=== PATIENT | female | born 1940 | race Caucasian/White ===

== ENCOUNTER 2021-02-21 15:15 | Outpatient (REF) | payer MEDICARE, BC, SELFPAY ==
[2021-02-21 21:41] LABS: BUN 15 mg/dL (7-18); CREATININE 0.8 mg/dL (0.55-1.02); Calcium 9.1 mg/dL (8.5-10.1); Chloride 107 mmol/L (98-107); Glucose 101 mg/dL (74-106); Potassium 4.2 mmol/L (3.5-5.1); Sodium 145 mmol/L (136-145)
== END 2021-02-21 15:16 | disposition home or self-care (01) ==
LOC: LBN 15:15
PROVIDERS: Visit Provider Nurse Practitioner Family
DX: R00.0 Tachycardia, unspecified (principal)
CPT/HCPCS: 80048; 84443

== ENCOUNTER 2021-02-23 16:12 | Outpatient (RCR) | payer MEDICARE, BC, SELFPAY ==
--- NOTE | 2021-02-23 16:15 | HOLTER_ITS ---
APPROVED REPORT Conclusion This is a 48-hour Holter monitor reportedly ordered for tachycardia Rhythm throughout was sinus with an average heart rate of 73. Minimum was 55, maximum 114 There were rare atrial and ventricular ectopic beats There were 8 self-limited atrial runs, the longest of which was 7 beats in duration There was no atrial fibrillation, no high-grade AV block, no pauses greater than 3 seconds No patient symptoms were reported
== END 2021-03-05 23:59 | disposition home or self-care (01) ==
LOC: RT 16:12
PROVIDERS: PCP Nurse Practitioner Family; Visit Provider Nurse Practitioner Family
DX: R00.0 Tachycardia, unspecified (principal); I49.1 Atrial premature depolarization
CPT/HCPCS: 93227; 93225; 93226

== ENCOUNTER 2021-03-27 16:55 | Outpatient (REF) | payer MEDICARE, BC, SELFPAY ==
[2021-03-29 15:04] LABS: COVID-19 RT-PCR UVMMC Result Negative (Negative)
== END 2021-03-27 16:56 | disposition home or self-care (01) ==
LOC: NCHCN 16:55
PROVIDERS: PCP Nurse Practitioner Family; Visit Provider Family Medicine
DX: Z20.822 Contact with and (suspected) exposure to COVID-19 (principal)
CPT/HCPCS: U0003

== ENCOUNTER 2021-06-06 02:04 | Outpatient (CLI) | payer MEDICARE, BC, SELFPAY ==
[2021-06-06 11:19] LABS: Vitamin B12 535 pg/mL (193-986)
== END 2021-06-06 02:05 | disposition home or self-care (01) ==
LOC: LBO 02:04
PROVIDERS: PCP Family Medicine; Visit Provider Nurse Practitioner Adult Health
DX: G31.84 Mild cognitive impairment of uncertain or unknown etiology
CPT/HCPCS: 36415; 82607

== ENCOUNTER → 2021-08-03 02:28 | Outpatient (CLI) | payer MEDICARE, BC, SELFPAY ==
--- NOTE | 2021-08-03 07:44 | DI.MAMMO_ITS ---
Exam(s) MAMMO SCREENING EXAM: MAMMO SCREENING CLINICAL HISTORY: SCREENING FOR BREAST CANCER Z12.39 TECHNIQUE: Bilateral full field digital CC and MLO mammographic images were obtained with 3D tomosyn thesis and utilizing computer aided detection (CAD). COMPARISON: None. FINDINGS: Masses/Architectural Distortion: None seen. Microcalcifications: No suspicious pleomorphic-type are seen. Skin Thickening/Nipple Retraction: None. IMPRESSION: 1. No significant interval change with no specific features of malignancy noted. 2. Unless there is more urgent need, screening mammography is recommended, as per [employer] guidelines. BI-RADS Category 1 - Negative Breast Density - Category B - Scattered areas of fibroglandular density Breast density category C or D implies that the patient has dense breast tissue. Dense breast tissue is very common and is not abnormal but dense breast tissue can make it harder to find cancer on a ma mmogram. Also, dense breast tissue may increase their breast cancer risk. This information about the result of the mammogram report was provided to the patient to raise their awareness. Use this report when you speak with the patient about their risks for breast cancer, which includes their family hist ory. At that time, you may recommend for more screening tests (Ultrasound or MRI) as they might be us eful based on their risk. A negative radiographic report should not delay biopsy if a dominant or clinically suspicious mass is present. Up to ten percent of cancers are not identified on mammography. A negative report may reinforce clinical impression. Adenosis and dense breasts may obscure an underlying neoplasm. False positive reports average 6 to 10%. Patient will receive a letter notifying them of these results.
== END ==
PROVIDERS: PCP Family Medicine; Visit Provider Family Medicine
DX: Z12.31 Encounter for screening mammogram for malignant neoplasm of breast (principal)
CPT/HCPCS: 77063; 77067

== ENCOUNTER → 2022-01-10 08:46 | Outpatient (BNVA) | payer MEDICARE, BC, SELFPAY | PROVIDERS: PCP Family Medicine; Referring Provider Family Medicine; Visit Provider Nurse Practitioner Adult Health | DX: G30.9 Alzheimer's disease, unspecified (principal); F02.80 Dementia in other diseases classified elsewhere, unspecified severity, without behavioral disturbance, psychotic disturbance, mood disturbance, and anxiety | CPT/HCPCS: 99213; 99215 ==

== ENCOUNTER → 2022-01-22 12:37 | Outpatient (CLI) | payer MEDICARE, BC, SELFPAY ==
[2022-01-22] MEDS: Barium Sulfate 2% W/V-Creamy Vanilla Smoothie 450 ML BTL PO ×2 (12:23→12:24)
[2022-01-22 12:57] LABS: CREATININE 0.7 mg/dL (0.55-1.02); Estimated GFR 87.92 (mL/min/1.73m2)
--- NOTE | 2022-01-22 14:40 | DI.CT_ITS ---
Exam(s) CT ABDOMEN PELVIS W EXAM: CT ABDOMEN PELVIS W CLINICAL HISTORY: LLQ ABD PAIN, R10.32. TECHNIQUE: Imaging Protocol: Axial computed tomography images with coronal and sagittal reformatted images were created and reviewed CONTRAST MATERIAL: Intravenous: Omnipaque 350 Contrast volume:80 ml Oral: yes COMPARISON: No exams were available for comparison FINDINGS: ABDOMEN: Lung Bases: Normal where visualized. Liver: Normal density. No measurable mass. Gallbladder and biliary tract: No radiodense calculus or dilation. Pancreas: Normal density, no abnormal calcifications or inflammatory process. Spleen: Normal. Kidneys: Normal size, contour and axis. No radiodense stones or obstructive uropathy. No masses seen. Adrenal glands: No masses seen. Abdominal Aorta: Abdominal portion non-dilated. Atherosclerotic changes. Stomach and small bowel: Unremarkable. PELVIS: Bladder: No gross wall thickening. No calculi.No focal mass. Bowel: Extremely prominent diverticulosis involving the descending and sigmoid colon. Mild diverticu losis ascending and transverse colon. Mild inflammatory changes are seen in the adjacent fat at the mid descending colon, consistent with mild diverticulitis. No evidence of perforation or abscess. N o obstruction or bowel wall thickening. Peritoneal cavity: No ascites, collection or mesenteric infla mmatory response. Bones: severe degenerative changes and scoliosis. Reproductive organs: Within normal limits. Lymph nodes: Unremarkable. Impression: Severe diverticulosis of the descending and sigmoid colon with mild diverticulitis of the mid descend ing colon. RADIATION DOSE DELIVERED: 775.55mGy.cm Total DLP DATA REPOSITORY: All CT scans at this facility are submitted to the National Radiology Data Registry (NRDR) Dose Index Registry (DIR) with the [employer] (ACR). RADIATION OPTIMIZATION: All CT scans at this facility use at least one of these dose optimization te chniques: automated exposure control; mA and/or kV adjustment per patient size (includes targeted exa ms where dose is matched to clinical indication); or iterative reconstruction.
[2022-01-22] MEDS: Normal Saline Flush 10 ML SYR IVP (14:46)
== END ==
PROVIDERS: PCP Family Medicine; Visit Provider Family Medicine
DX: Z01.812 Encounter for preprocedural laboratory examination (principal); R10.32 Left lower quadrant pain; K57.32 Diverticulitis of large intestine without perforation or abscess without bleeding; K57.30 Diverticulosis of large intestine without perforation or abscess without bleeding
CPT/HCPCS: 74177; 82565

== ENCOUNTER 2022-01-22 18:14 | Outpatient (REF) | payer MEDICARE, BC, SELFPAY ==
[2022-01-22 16:59] LABS: Abs Immature Grans 0.01 10^3/uL (0.0-0.06); Absolute Basophil Count 0.03 10^3/uL (0.0-0.2); Absolute Eosinophil Count 0.11 10^3/uL (0.0-0.7); Absolute Lymphocyte Count 1.18 10^3/uL (1.2-3.4); Absolute Monocyte Count 0.46 10^3/uL (0.1-0.8); Absolute Neutrophil Count 2.71 10^3/uL (1.2-6.7); Basophils % 0.7; Eosinophils % 2.4; HCT 37.4 % (36.0-46.0); HGB 13.2 g/dL (11.2-15.7); Immature Grans % 0.2; Lymphocytes % 26.2; MCHC 35.3 % (32.0-36.0); MCV 99 fL (80-95); MPV 11.3 fL (8.0-11.0); Monocytes % 10.2; Neutrophils % 60.3; Platelet Count 159 10^3/uL (130-400); RBC 3.77 10^6/uL (3.93-5.22); RDW 12.2 % (11.7-14.6); RDW-SD 43.1 fL
[2022-01-22 17:20] LABS: ALT 32 U/L (14-59); AST 29 U/L (15-37); Albumin 3.7 g/dL (3.4-5.0); Alkaline Phosphatase 79 U/L (46-116); Anion Gap 6.2 mmol/L (3-11); BUN 9 mg/dL (7-18); Bilirubin, Total 0.5 mg/dL (0.2-1.0); CO2 30.8 mmol/L (21.0-32.0); CREATININE 0.8 mg/dL (0.55-1.02); Calcium 9.2 mg/dL (8.5-10.1); Chloride 104 mmol/L (98-107); Glucose 95 mg/dL (74-106); Sodium 141 mmol/L (136-145); Total Protein 7.4 g/dL (6.4-8.2)
== END 2022-01-22 18:15 | disposition home or self-care (01) ==
LOC: NCHCN 18:14
PROVIDERS: PCP Family Medicine; Visit Provider Family Medicine
DX: R10.32 Left lower quadrant pain (principal)
CPT/HCPCS: 80053; 85025

== ENCOUNTER → 2022-02-07 11:57 | Outpatient (CLI) | payer MEDICARE, BC, SELFPAY ==
--- NOTE | 2022-02-07 11:12 | DI.RAD_ITS ---
Exam(s) XR LUMBAR SPINE COMPLETE EXAM: XR LUMBAR SPINE COMPLETE CLINICAL HISTORY: ACUTE LOW BACK PAIN, M54.59. TECHNIQUE: 2D digital imaging was performed. Five views. COMPARISON: CT CT ABDOMEN PELVIS W from 01/22/2022 FINDINGS: BONES: No fracture or destructive lesion. Vertebral body heights are maintained. facet hypertrophy identified throughout the lumbar region.. DISKS: Disc space narrowing throughout, greater on the right side. 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 SOFT TISSUE: Aortic calcified and normal in diameter. Residual contrast noted within multiple divert icula. IMPRESSION: Advanced degenerative changes and scoliosis. No compression fracture. DATA REPOSITORY: RADIATION DOSE DELIVERED:
== END ==
PROVIDERS: PCP Family Medicine; Visit Provider Family Medicine
DX: M54.59 Other low back pain (principal); M51.36 Other intervertebral disc degeneration, lumbar region; M47.816 Spondylosis without myelopathy or radiculopathy, lumbar region
CPT/HCPCS: 72110

== ENCOUNTER → 2022-02-21 09:57 | Outpatient (BNVA) | payer MEDICARE, BC, SELFPAY | PROVIDERS: PCP Family Medicine; Referring Provider Family Medicine; Visit Provider Nurse Practitioner Adult Health | DX: G30.9 Alzheimer's disease, unspecified (principal); F02.80 Dementia in other diseases classified elsewhere, unspecified severity, without behavioral disturbance, psychotic disturbance, mood disturbance, and anxiety; Z87.820 Personal history of traumatic brain injury; F32.A Depression, unspecified | CPT/HCPCS: 99213; 99214 ==

== ENCOUNTER 2023-09-09 14:00 | Outpatient (REF) | payer MEDICARE, BC, SELFPAY ==
[2023-09-09 15:05] LABS: Abs Immature Grans 0.01 10^3/uL (0.0-0.06); Absolute Basophil Count 0.02 10^3/uL (0.0-0.2); Absolute Eosinophil Count 0.04 10^3/uL (0.0-0.7); Absolute Lymphocyte Count 1.01 10^3/uL (1.2-3.4); Absolute Monocyte Count 0.47 10^3/uL (0.1-0.8); Absolute Neutrophil Count 2.84 10^3/uL (1.2-6.7); Basophils % 0.5 %; Eosinophils % 0.9 %; HCT 41.6 % (36.0-46.0); HGB 14.1 g/dL (11.2-15.7); Immature Grans % 0.2 %; MCH 32.5 pg (27.0-33.0); MCHC 33.9 % (32.0-36.0); MCV 96 fL (80-95); MPV 10.3 fL (8.0-11.0); Monocytes % 10.7 %; Neutrophils % 64.7 %; Platelet Count 150 10^3/uL (130-400); RBC 4.34 10^6/uL (3.93-5.22); RDW 13.6 % (11.7-14.6); RDW-SD 46.5 fL; WBC 4.39 10^3/uL (4.4-10.8)
[2023-09-09 15:42] LABS: ALT 23 U/L (14-59); AST 26 U/L (15-37); Alkaline Phosphatase 71 U/L (46-116); Anion Gap 7.8 mmol/L (3-11); BUN 7 mg/dL (7-18); Bilirubin, Total 0.6 mg/dL (0.2-1.0); CO2 30.2 mmol/L (21.0-32.0); CREATININE 0.8 mg/dL (0.55-1.02); Calcium 9.1 mg/dL (8.5-10.1); Chloride 106 mmol/L (98-107); Estimated GFR 73.98 (mL/min/1.73m2); Glucose 98 mg/dL (74-106); Potassium 4.3 mmol/L (3.5-5.1); Sodium 144 mmol/L (136-145); TSH 1.47 uIU/Ml (0.36-3.74); Total Protein 6.4 g/dL (6.4-8.2)
== END 2023-09-09 14:01 | disposition home or self-care (01) ==
LOC: NCHCN 14:00
PROVIDERS: PCP Family Medicine; Visit Provider Family Medicine
DX: G30.9 Alzheimer's disease, unspecified (principal)
CPT/HCPCS: 80053; 84443; 85025

== ENCOUNTER → 2023-09-26 10:02 | Outpatient (BNVA) | payer MEDICARE, BC, SELFPAY | PROVIDERS: PCP Family Medicine; Referring Provider Family Medicine; Visit Provider Nurse Practitioner Adult Health | DX: G30.9 Alzheimer's disease, unspecified (principal); F02.80 Dementia in other diseases classified elsewhere, unspecified severity, without behavioral disturbance, psychotic disturbance, mood disturbance, and anxiety | CPT/HCPCS: 99215 ==

== ENCOUNTER → 2023-11-28 08:33 | Outpatient (BNVA) | payer MEDICARE, BC, SELFPAY | PROVIDERS: PCP Family Medicine; Referring Provider Family Medicine; Visit Provider Nurse Practitioner Adult Health | DX: G30.9 Alzheimer's disease, unspecified (principal); F02.80 Dementia in other diseases classified elsewhere, unspecified severity, without behavioral disturbance, psychotic disturbance, mood disturbance, and anxiety; F41.9 Anxiety disorder, unspecified | CPT/HCPCS: 99213 ==

== ENCOUNTER 2024-03-19 14:51 | Outpatient (REF) | payer MEDICARE, BC, SELFPAY ==
--- NOTE | 2024-03-19 10:00 | SKI_PTH ---
PATIENT: Tatiana Webster LOC: [facility] U#:[id number] AGE/SX: 83/F ROOM: RE03/19/[address]: Andrew March : 1940 BED: DIS: 03/19/2024 SPEC #: [id number] RECD: 03/19/24 14:58 STATUS: [facility] REKwadwo #: [id number] LARON: 03/19/24 10:[address]: Andrew March DEPT: Surgical Specimen RECD BY: Susan Contreras Tissues: 1 - SKIN BIOPSY(SHAVE/PUNCH) Procedures: SKIN LEVEL 4 Comments: [id number]
== END 2024-03-19 14:52 | disposition home or self-care (01) ==
LOC: LBN 14:51
PROVIDERS: PCP Family Medicine; Visit Provider Family Medicine
DX: C44.719 Basal cell carcinoma of skin of left lower limb, including hip (principal)
CPT/HCPCS: 88305

== ENCOUNTER → 2024-05-19 08:17 | Outpatient (BNVA) | payer MEDICARE, BC, SELFPAY | PROVIDERS: PCP Family Medicine; Referring Provider Family Medicine; Visit Provider Nurse Practitioner Adult Health | DX: G30.9 Alzheimer's disease, unspecified (principal); F02.80 Dementia in other diseases classified elsewhere, unspecified severity, without behavioral disturbance, psychotic disturbance, mood disturbance, and anxiety | CPT/HCPCS: 99214 ==

== ENCOUNTER 2025-01-06 14:53 | Outpatient (CLI) | payer MEDICARE, BC, SELFPAY ==
--- NOTE | 2025-01-06 06:00 | DI.RAD_ITS ---
Exam(s) XR FOOT RT COMPLETE EXAM: XR FOOT RT COMPLETE CLINICAL HISTORY: Right foot pain M79.671. TECHNIQUE: 2D digital imaging was performed of the right foot. Three images were obtained. AP, oblique and lateral views were obtained. COMPARISON: No exams were available for comparison FINDINGS: BONES: No acute fracture is present. No bony destructive lesion is seen. There is overlapping of the 1st and 2nd toes. JOINTS: No dislocation present. Degenerative changes are present characterized by joint space narrowing and osteophytes. The findings are most marked at the interphalangeal joints of the toes, particularly the 4th toe, and the 1st MTP joint. SOFT TISSUE: Normal. IMPRESSION: Degenerative changes of the foot particularly at the 1st MTP joint and the interphalangeal joints of the 4th toe. DATA REPOSITORY: RADIATION DOSE DELIVERED:
== END 2025-01-06 15:13 ==
PROVIDERS: PCP Family Medicine; Visit Provider Podiatrist
DX: M19.071 Primary osteoarthritis, right ankle and foot (principal); L97.511 Non-pressure chronic ulcer of other part of right foot limited to breakdown of skin; M79.671 Pain in right foot; M20.41 Other hammer toe(s) (acquired), right foot; L84 Corns and callosities
CPT/HCPCS: 97597; 99213; 73630

== ENCOUNTER 2025-03-10 16:18 | Outpatient (REF) | payer MEDICARE, BC, SELFPAY ==
--- NOTE | 2025-03-10 10:20 | SKI_PTH ---
PATIENT: Tatiana Webster LOC: [facility] U#:[id number] AGE/SX: 84/F ROOM: RE03/10/[address]: Andrew March : 1940 BED: DIS: 03/10/2025 SPEC #: [id number] RECD: 03/10/25 17:53 STATUS: [facility] REKwadwo #: [id number] LARON: 03/10/25 10:[address]: Andrew March DEPT: Surgical Specimen RECD BY: Susan Contreras Tissues: 1 - SKIN BIOPSY(SHAVE/PUNCH) Procedures: SKIN LEVEL 4 Comments: [id number]
[2025-03-10 14:13] LABS: Glucose Negative (Negative)
== END 2025-03-10 16:19 | disposition home or self-care (01) ==
LOC: NCHCN 16:18
PROVIDERS: PCP Family Medicine; Visit Provider Family Medicine
DX: G30.9 Alzheimer's disease, unspecified (principal)
CPT/HCPCS: 81003; 88305

== ENCOUNTER 2025-04-26 14:48 | Emergency (ER) | payer MEDICARE, BC, SELFPAY ==
[2025-04-26 14:54] VITALS: BP 163/62; PULSE 82; RESP 20; O2SAT 97
--- NOTE | 2025-04-26 15:00 | DI.CT_ITS ---
Exam(s) CT HEAD CERV SPINE FACIAL WO EXAM: CT HEAD CERV SPINE FACIAL WO CLINICAL HISTORY: unwitness fall, facial trauma. TECHNIQUE: Imaging Protocol: Axial computed tomography images with coronal and sagittal reformatted images were created and reviewed COMPARISON: No exams were available for comparison FINDINGS: CT BRAIN: There are no skull fractures nor fluid in the visualized paranasal sinuses. There is no evidence of intracranial hemorrhage, mass effect, or shift of midline structures. There are no extra-axial fluid collections. The ventricles are not enlarged or shifted and there is no blood within the ventricular system nor within the basal cisterns. There is symmetrical age-related atrophy. The size of the ventricles does not appear to be out of proportion when compared to the size of the overlying cortical sulci. There is moderate amount of bilateral symmetrical periventricular hypodensity consistent with chronic small vessel disease. No obvious acute infarct. CT MAXILLOFACIAL BONES: There is a slight irregularity evident in the right-side of the nasal bone consistent with probable fracture, age indeterminate. There is no evidence of other facial fractures nor fluid in the visualized paranasal sinuses. there is no evidence of orbital blowout fracture. Mandible is intact. CT CERVICAL SPINE: There is fusion of C2 and C3.. There is mild anterolisthesis of C4 upon C5 related to facet arthropathy. No fracture at this level. There is advanced disc space narrowing at C5-6 and C6-7 levels. Some multilevel facet arthropathy is noted. No significant osseous lesions evident. IMPRESSION: No acute intracranial findings on this noninfused CT scan of the brain. No evidence of facial nor orbital blowout fractures.However, there is slight irregularity of the right-side of the nasal bone which may represent a fracture, age indeterminate. No evidence of acute cervical spine fracture, malalignment, nor acute compromise of the cervical spinal canal. Multilevel degenerative changes as described Report called by myself to ER physician 04/26/2025 at 4:04 p.m. RADIATION DOSE DELIVERED: 1,581.75mGy.cm Total DLP DATA REPOSITORY: All CT scans at this facility are submitted to the National Radiology Data Registry (NRDR) Dose Index Registry (DIR) with the [employer] (ACR). RADIATION OPTIMIZATION: All CT scans at this facility use at least one of these dose optimization techniques: automated exposure control; mA and/or kV adjustment per patient size (includes targeted exams where dose is matched to clinical indication); or iterative reconstruction.
--- NOTE | 2025-04-26 15:03 | ED.GENADUL_ITS ---
Discharge Plan Disposition Patient Disposition: Home Condition: Stable Discharge Details Clinical Impression: Fall, Blunt head trauma Primary Care Provider: Andrew March ED Provider: Rico Posey Home Meds and New Rx's Prescriptions: Continued donepezil 10 mg tablet 10 mg PO QHS Qty: 90 3RF hydroxyzine HCl 25 mg tablet 25 mg PO QHS PRN acetaminophen 325 mg tablet 325 mg PO Q6H PRN sertraline 50 mg tablet 50 mg PO DAILY Qty: 90 11RF Discharge Instructions Additional Instructions: Your lab work and imaging did now show acute emergent findings. Follow up with your primary care provider as needed. If you feel more ill or have new symptoms such as persistent vomiting return to the emergency department for reevaluation. You can also follow-up with a dentist for your tooth that was chipped. Stand Alone Forms: Portal Information HPI General Mode of arrival: EMS . Date/Time Provider Initiated Documentation: 04/26/25 14:52 . Information obtained by: EMS . History of Present Illness 84 year old F presents to the emergency department with the chief complaint of facial pain/tooth pain, described as mild, Quality is described as aching, and is localized to the face. Patient started experiencing this unknown and it has been constant. No relieving factors improve symptom(s), No exacerbating factors reported . Patient notes no other symptoms.. Related Data Home Medications ?Medication ?Instructions ?Recorded ?Confirmed hydroxyzine HCl 25 mg tablet 25 mg PO QHS PRN 09/26/23 01/06/25 sertraline 50 mg tablet 50 mg PO DAILY #90 tabs 09/0401/06/25 acetaminophen 325 mg tablet 325 mg PO Q6H PRN 01/06/25 01/06/25 donepezil 10 mg tablet 10 mg PO QHS #90 tabs 01/06/25 Previous Rx's ?Medication ?Instructions ?Recorded sertraline 50 mg tablet 50 mg PO DAILY #90 tabs 09/04 05/30 donepezil 10 mg tablet 10 mg PO QHS #90 tabs Allergies Allergy/AdvReac Type Severity Reaction Status Date / Time No Known Allergies Allergy Verified 01/06/25 14:23 General Stated Complaint: HeadInjury MARCO: 3 Review of Systems All systems reviewed & are unremarkable except as noted in HPI and below Constitutional Constitutional: Denies chills, Denies fever(s) and Denies weakness Cardiovascular Cardiovascular: Denies chest pain and Denies dyspnea Respiratory Respiratory: Denies cough and Denies dyspnea Gastrointestinal Gastrointestinal: Denies abdominal pain, Denies nausea and Denies vomiting Neurologic Neurologic: Denies weakness Exam Const General: no acute distress Orientation: alert [facility] Head: no palpable skull fracture Ears: external ears normal Mouth: moist mucous membranes Eyes General: appearance normal, both eyes and all related structures Neck Neck: normal visual inspection Chest Chest: no tenderness Resp Effort & Inspection: normal respiratory effort and able to speak in complete sentences Auscultation: clear to auscultation bilaterally Cardio Rate: regular rate GI Palpation: soft and nontender Skin General skin exam: no rashes or lesions noted Neuro General: patient alert and patient oriented x3 Extrem General: normal to inspection Psych Mental Status: mental status grossly normal Course Vital Signs Vital signs: Vital Signs Pulse 82 04/26/25 14:54 Respiratory Rate 20 04/26/25 14:54 Blood Pressure 163/62 H 04/26/25 14:54 Pulse Oximetry 97 04/26/25 14:54 Pulse 82 04/26/25 14:54 Respiratory Rate 20 04/26/25 14:54 Respiratory Effort Normal 04/26/25 14:57 Respiratory Depth Normal 04/26/25 14:57 Respiratory Pattern Normal 04/26/25 14:57 Blood Pressure 163/62 H 04/26/25 14:54 Blood Pressure Position Sitting 04/26/25 14:54 Pulse Oximetry 97 04/26/25 14:54 Oxygen Delivery Method Room Air 04/26/25 14:54 Oxygen Flow Rate 0 04/26/25 14:54 Medical Decision Making 84-year-old female with a history of dementia, hypertension, who comes in after [facility] noticed she had facial trauma. They brought her to the closest fire department who then called EMS and brought her here. She does not remember falling. She denies any chest pain, difficulty breathing, abdominal pain, back pain. She has pain in her right upper incisor which appears to be chipped with no dentin or pulp showing. She also has abrasions on the nose with no septal hematoma, has an abrasion to the left upper lip. Has no midline C- spine, T-spine or L-spine tenderness. No chest or abdomen tenderness. No scalp hematomas. She had a tetanus shot in March 2021. I suspect she fell and given her dementia cannot recall the event. Will obtain a CT head, facial bones and C-spine. Will check CBC and CMP as well. She has full range of motion of her eyes with no pain in her eye so I doubt orbital injury. imaging and labs unremarkable, pt stable, no midline c spine tenderness and full rom so collar cleared. She has no new pain elsewhere. No tenderness of the nose so doubt the fracture seen on CT is acute. she is stable for d/c, advised to f/u with pcp and return precautions given PFS All Active Problems (Updated 04/26/25 @ 16:39 by Rico Posey MD) Blunt head trauma (Acute) Fall (Acute) Corns and callosities (Acute) Hammertoe of right foot (Acute) Ulcer of right foot limited to breakdown of skin (Acute) Right foot pain (Acute) Hypertension (Chronic) Hyperlipemia (Acute) Depression (Chronic) Anxiety (Chronic) Ingrowing nail (Acute) Alzheimer's dementia without behavioral disturbance (Acute) Medical History History of broken collarbone TBI (traumatic brain injury) Family History Mother Dementia Social History Smoking/Tobacco Use Status: Never Smoking risk assessment performed?: Yes Number of Children: 4 What is your relationship status?: Panel score (0-1 are the most socially isolated patients): 0 What type of physical activity do you participate in: walking Duration: 15-30 minutes/day Frequency: 3-4 times per week PAWSS Have you Been Recently Intoxicated or Drunk Within the Last 30 days?: No Have you Ever Experienced Previous Episodes of Alcohol Withdrawal?: No Have you ever Experienced Withdrawal Seizures?: No Have you ever Experienced Delirium Tremens(DT)s?: No Have you ever undergone Alcohol Rehabilitation Treatment (i.e, inpt ot outpatient treatment programs)?: No Have you ever Experienced Blackouts?: No Have you ever Combined Alcohol with other Downers within the last 90 days?: No Have you ever Combined Alcohol with any other Substance of Abuse during the last 90 days?: No Positive Blood Alcohol level on Presentation? [PCS.BAL]: No Evidence of Increased Autonomic Activity (i.e. HR>120, tremor, sweating, agitation, nausea)?: No Result: 0
[2025-04-26 15:06] VITALS: TEMP 36.8
[2025-04-26 16:07] LABS: HCT 38.9 % (36.0-46.0); HGB 12.3 g/dL (11.2-15.7); MCH 29.0 pg (27.0-33.0); MCHC 31.6 % (32.0-36.0); MCV 92 fL (80-95); MPV 9.6 fL (8.0-11.0); Platelet Count 151 10^3/uL (130-400); RBC 4.24 10^6/uL (3.93-5.22); RDW 13.4 % (11.7-14.6); RDW-SD 45.5 fL; WBC 6.74 10^3/uL (4.4-10.8)
[2025-04-26 16:22] LABS: Magnesium 2.1 mg/dL (1.6-2.6)
[2025-04-26 16:24] LABS: ALT 16 U/L (10-49); AST 25 U/L (<34); Albumin 4.3 g/dL (3.2-5.0); Alkaline Phosphatase 114 U/L (46-116); Anion Gap 7.9 mmol/L (3-11); BUN 13 mg/dL (9-23); Bilirubin, Total 0.4 mg/dL (0.2-1.2); CO2 30.1 mmol/L (20.0-31.0); Calcium 9.0 mg/dL (8.3-10.6); Chloride 105 mmol/L (98-107); Glucose 104 mg/dL (74-106); Potassium 3.9 mmol/L (3.5-5.1); Sodium 143 mmol/L (136-145); Total Protein 7.1 g/dL (5.7-8.2)
--- NOTE | 2025-04-26 16:33 | NUR.NOTE ---
Nursing Note: The patient came in via EMS and we were told that she is a resident of [facility]. I called and spoke with Jeb to confirm that she was in fact a resident and I wanted to let them know what had happened and that she is in the ED.
[2025-04-26 16:59] VITALS: BP 165/72; PULSE 98; RESP 14; O2SAT 95
== END 2025-04-26 18:10 | disposition home or self-care (01) ==
PROVIDERS: Emergency Provider Emergency Medicine; PCP Family Medicine
DX: S09.8XXA Other specified injuries of head, initial encounter (principal); W19.XXXA Unspecified fall, initial encounter
CPT/HCPCS: 99283; 99284; 80053; 85027; 70450; 70486; 72125; 83735